=== PATIENT | male | born 1965 | race Caucasian/White ===

== ENCOUNTER 2016-10-17 23:50 | Emergency (ER) | payer MEDICARE, OTHER ==
[~2016-10-17] VITALS: Ht 177.8 cm; Wt 131.5 kg
--- OUTSIDE RECORDS SUMMARY | ~2016-10-17 | XMS ---
Demographics + + + | Address | [address] | | | [place] [address] | + + + | Preferred Language | Unknown | + + + | Marital Status | Unknown | + + + | Yarsanism Affiliation | Unknown | + + + | Race | Unknown | + + + | Ethnic Group | Unknown | + + + Author + + + | Author | [facility] | + + + | Organization | [facility] | + + + | Address | [address] | | | [place] [address] | + + + | Phone | | + + + Care Team Providers + + + + | Care Welder Boilermaker Name | Role | Phone | + + + + Unavailable | Unavailable | + + + + PROBLEMS + + + + + + + + | Type | Condition | ICD9-CM | [id number] | Onset | Condition | SNOMED | | | | Code | Code | Dates | Status | Code | + + + + + + + + | Problem | Parkinson' | 332.0 | | | Active | 09138842 | | | s disease | | | | | | | | NOS | | | | | | + + + + + + + + | Problem | Crohn's | 555.1 | | | Active | 23374393 | | | disease of | | | | | | | | colon | | | | | | + + + + + + + + | Problem | Abdominal | 789.07 | | | Active | 907514991 | | | pain, | | | | | | | | generalize | | | | | | | | d | | | | | | + + + + + + + + | Assessment | Plantar | M72.2 | | Jul, | Active | [id number] | | | fasciitis | | | 2016 | | | + + + + + + + + | Problem | Essential | | I10 | | Active | 68850623 | | | (primary) | | | | | | | | hypertensi | | | | | | | | on | | | | | | + + + + + + + + | Problem | Hyperlipid | | E78.5 | | Active | 74088446 | | | emia | | | | | | + + + + + + + + | Problem | B12 | 266.2 | | | Active | 384709269 | | | vitamin | | | | | | | | deficiency | | | | | | + + + + + + + + | Problem | Depression | 296.00 | | | Active | 698918562 | | | , major | | | | | | | | NOS | | | | | | + + + + + + + + | Problem | POSTSURGIC | V45.89 | | | Active | 42585473 | | | AL STATES | | | | | | | | NEC | | | | | | + + + + + + + + | Problem | Ventral | 553.20 | | | Active | 074823531 | | | hernia NOS | | | | | | | | without | | | | | | | | mention of | | | | | | | | | | | | | | | | obstructio | | | | | | | | n or | | | | | | | | gangrene | | | | | | + + + + + + + + ALLERGIES + + + + +--------+ | Substance | Reaction | Event Type | Date | Status | + + + + +--------+ | allergic to one | Unknown | Non Drug | Jul, | Active | | antibiotic at | | Allergy | | | | dentist (went | | | | | | to ED | | | | | + + + + +--------+ SOCIAL HISTORY No smoking Hx information available PLAN OF CARE VITAL SIGNS + + + + | Height | 70 in | 2016-07-28 | + + + + | Weight | 268 lbs | 2016-07-28 | + + + + | BMI | 38.45 kg/m2 | 2016-07-28 | + + + + | Temperature | 98.0 degrees Fahrenheit | 2016-07-28 | + + + + | Heart Rate | 81 /min | 2016-07-28 | + + + + | Blood pressure systolic | 111 mm Hg | 2016-07-28 | + + + + | Blood pressure diastolic | 79 mm Hg | 2016-07-28 | + + + + MEDICATIONS + + + + + + + +--------+ | Medicati | Instruct | Dosage | Frequenc | Start | End Date | Duration | Status | | on | ions | | y | Date | | | | + + + + + + + +--------+ | Omeprazo | | TAKE ONE | | | | 30 | Active | | le 20 | | CAPSULE | | | | | | | | | BY | | | | | | | | | MOUTH | | | | | | | | | EVERY | | | | | | | | | DAY | | | | | | + + + + + + + +--------+ | Sulfasal | | TAKE 2 | | | | 30 | Active | | azine | | TABLETS | | | | | | | 500 | | BY MOUTH | | | | | | | | | EVERY 6 | | | | | | | | | HOURS | | | | | | + + + + + + + +--------+ | Ondanset | Orally | 1 tablet | | 24 Jm, | | 30 | Active | | awilda 4 mg | -subling | | | 2013 | | | | | | ual qid | | | | | | | | | for | | | | | | | | | Nausea | | | | | | | + + + + + + + +--------+ | Proprano | | TAKE 1 | | | | 30 | Active | | lol HCl | | CAPSULE | | | | | | | ER 60 | | BY MOUTH | | | | | | | | | EVERY | | | | | | | | | DAY | | | | | | + + + + + + + +--------+ | vitamin | intramus | 1 mL | | 26 Jm, | | | Active | | B-12 | cularly | | | 2013 | | | | | 1000mcg | NOW | | | | | | | + + + + + + + +--------+ | Carbidop | | TAKE 1 | | | | 30 | Active | | a-Levodo | | TABLET | | | | | | | pa 0 | | BY MOUTH | | | | | | | | | 3 TIMES | | | | | | | | | DAILY | | | | | | + + + + + + + +--------+ | Primidon | | 1 tablet | | | | | Active | | e 50 MG | | | | | | | | + + + + + + + +--------+ | Ibuprofe | Orally | 1 tablet | 8h | 28 Jul, | 8 July, | 10 | Active | | n 800 MG | Three | | | 2017 | 2017 | day(s) | | | | times a | | | | | | | | | day | | | | | | | + + + + + + + +--------+ | Prilosec | Orally q | 1 ta b | | | | 30 | Active | | 20 | day | | | | | | | + + + + + + + +--------+ RESULTS + +--------+------+ + | Name | Result | Date | Reference Range | + +--------+------+ + | Glucose, Finger | | | | | Stick (IH) | | | | + +--------+------+ + PROCEDURES + + + + + | Procedure | Date Ordered | Related Diagnosis | Body Site | + + + + + | Office Visit, Est | July 28, 2016 | | | | Pt., Level 3 | | | | + + + + + | REAGENT STRIP/BLOOD | July 28, 2016 | | | | GLUCOSE | | | | + + + + + IMMUNIZATIONS No Known Immunizations"
--- OUTSIDE RECORDS SUMMARY | ~2016-10-17 | XMS ---
Demographics + + + | Address | [address] | | | [place] [address] | + + + | Preferred Language | Unknown | + + + | Marital Status | Unknown | + + + | Sabianist Affiliation | Unknown | + + + | Race | Unknown | + + + | Ethnic Group | Unknown | + + + Author + + + | Author | [facility] | + + + | Organization | [facility] | + + + | Address | [address] | | | [place] [address] | + + + | Phone | | + + + Care Team Providers + + + + | Care Railroad Auditor Name | Role | Phone | + + + + Unavailable | Unavailable | + + + + PROBLEMS +---------+ + + +--------+ + + | Type | Condition | ICD9-CM | [id number] | Onset | Condition | SNOMED | | | | Code | Code | Dates | Status | Code | +---------+ + + +--------+ + + | Problem | Parkinson' | 332.0 | | | Active | [id number] | | | s disease | | | | | | | | NOS | | | | | | +---------+ + + +--------+ + + | Problem | Crohn's | 555.1 | | | Active | 26671522 | | | disease of | | | | | | | | colon | | | | | | +---------+ + + +--------+ + + | Problem | Abdominal | 789.07 | | | Active | 571520768 | | | pain, | | | | | | | | generalize | | | | | | | | d | | | | | | +---------+ + + +--------+ + + | Problem | Essential | | I10 | | Active | 58602796 | | | (primary) | | | | | | | | hypertensi | | | | | | | | on | | | | | | +---------+ + + +--------+ + + | Problem | Hyperlipid | | E78.5 | | Active | 01930965 | | | emia | | | | | | +---------+ + + +--------+ + + | Problem | B12 | 266.2 | | | Active | 163748885 | | | vitamin | | | | | | | | deficiency | | | | | | +---------+ + + +--------+ + + | Problem | Depression | 296.00 | | | Active | 546881661 | | | , major | | | | | | | | NOS | | | | | | +---------+ + + +--------+ + + | Problem | POSTSURGIC | V45.89 | | | Active | 95009123 | | | AL STATES | | | | | | | | NEC | | | | | | +---------+ + + +--------+ + + | Problem | Ventral | 553.20 | | | Active | [id number] | | | hernia NOS | | [...] gangrene | | | | | | +---------+ + + +--------+ + + ALLERGIES + + + + +--------+ | Substance | Reaction | Event Type | Date | Status | + + + + +--------+ | allergic to one | Unknown | Non Drug | July, | Active | | antibiotic at | | Allergy | | | | dentist (went | | | | | | to ED | | | | | + + + + +--------+ SOCIAL HISTORY No smoking Hx information available PLAN OF CARE + +---------+ | Activity | Details | + +---------+ +---+ | | +---+ + + + | Follow Up | 4 Weeks Reason:null | + + + | Pending Test | TSH | + + + | Pending Test | Sedimentation Rate-Westergren | + + + | Pending Test | CBC | + + + VITAL SIGNS + + + + | Height | 70 in | 2016-08-23 | + + + + | Weight | 283.0 lbs | 2016-08-23 | + + + + | BMI | 40.60 kg/m2 | 2016-08-23 | + + + + | Heart Rate | 83 /min | 2016-08-23 | + + + + | Blood pressure systolic | 143 mm Hg | 2016-08-23 | + + + + | Blood pressure diastolic | 64 mm Hg | 2016-08-23 | + + + + MEDICATIONS + [...] | intramus | 1 mL | | Sep, | | | Active | | B-12 | cularly | | | 2012 | | | | | 1000mcg | NOW | | | | | | | + + + + + + + +--------+ | Ondanset | Orally | 1 tablet | | 24 Sep, | | 30 | Active | | [...] Orally | 1 tablet | 8h | | | 10 | Active | | n 800 MG | Three | | | | | | | | | times a | [...] + + + + + +--------+ | Motrin | Orally | 1 tablet | | 24 July, | | 30 | Active | | IB 800 | every 8 | as | | 2017 | | | | | MG | hr prn | needed | | | | | | + [...] Reference Range | + +--------+------+ + | Comp. Metabolic | | | | | Panel (14) | | | | + +--------+------+ + | Calcium, Serum | | | | + +--------+------+ + | Glucose, Serum | | | | + +--------+------+ + | BUN | | | | + +--------+------+ + | Protein, Total, | | | | | Serum | | | | + +--------+------+ + | Albumin, Serum | | | | + +--------+------+ + | Bilirubin, Total | | | | + +--------+------+ + | Alkaline | | | | | Phosphatase, S | | | | + +--------+------+ + | AST (SGOT) | | | | + +--------+------+ + | Potassium, Serum | | | | + +--------+------+ + | Sodium, Serum | | | | + +--------+------+ + | Chloride, Serum | | | | + +--------+------+ + | Creatinine, Serum | | | | + +--------+------+ + | ALT (SGPT) | | | | + +--------+------+ + | Carbon Dioxide, | | | | | Total | | | | + +--------+------+ + | BUN/Creatinine | | | | | Ratio | | | | + +--------+------+ + | Globulin, Total | | | | + +--------+------+ + | A/G Ratio | | | | + +--------+------+ + PROCEDURES + + + + + | Procedure | Date Ordered | Related Diagnosis | Body Site | + + + + + | INJ VIT B-12 | August 23, 2016 | | | | CYNOCOBLMN TO 1000 | | | | | MCG | | | | + + + + + | INJECTION | August 23, 2016 | | | | ADMINISTRATION | | | | + + + + + | Office Visit, Est | August 23, 2016 | | | | Pt., Level 3 | | | | + + + + + IMMUNIZATIONS + + + + + | Vaccine | Route | Administration Date | Status | + + + + + | Cyanocobalamin | IM Intramuscular | August 23, 2016 | Administered | + + + + +"
[~2016-10-17 23:50] MED LIST: ABILIFY10 MG PO; ABILIFY5 MG; ALBUTEROL2.5 MG/3 M INH; ASACOL400 MG PO; AZITHROMYCIN IV; CARBIDOPA-LEVO1 EAC1 PO; CEPHALEXIN500 MG PO; LAMOTRIGINE25 MG PO; LEVAQUIN750 MG PO; OMEPRAZOLE20 MG PO; ONDANSETRON ODT4 MG PO; PRILOSEC20 MG; PRIMIDONE50 MG PO; PROPRANOLOL HCL60 MG PO; PROZAC40 MG PO; SEPTRA DS TABL1 EACH PO; SULFASALAZINE500 MG PO; SULFAZINE500 MG; SULFAZINE500 MG PO; TEGRETOL XR100 MG; TRAMADOL HCL50 MG PO; TYLENOL PM EX-1 EACH; VICODIN 5-3001 EACH PO; ZOFRAN ODT4 MG SL
[2016-10-18] MEDS ORDERED: OXYCODONE HCL5 MG PO (00:19)
[2016-10-18] MEDS ORDERED: ONDANSETRON ODT4 MG PO (00:24)
== END 2016-10-18 03:13 | disposition home or self-care (01) ==
LOC: ED 23:50
DX: G89.18 Other acute postprocedural pain (principal); Z86.73 Personal history of transient ischemic attack (TIA), and cerebral infarction without residual deficits; Z87.442 Personal history of urinary calculi; Z88.1 Allergy status to other antibiotic agents; Z86.14 Personal history of Methicillin resistant Staphylococcus aureus infection; Z88.8 Allergy status to other drugs, medicaments and biological substances; Z79.899 Other long term (current) drug therapy
CPT/HCPCS: 74177; 80053; 81001; 83690; 85025; 96374; 99284; J2405; Q9967

== ENCOUNTER 2020-04-14 12:28 | Emergency (ER) | payer MEDICARE, OTHER ==
[~2020-04-14] VITALS: Ht 180.3 cm; Wt 144.4 kg
[~2020-04-14 12:28] MED LIST changes: +LIPITOR10 MG PO; +OXYCODONE HCL5 MG PO
[2020-04-14] MEDS ORDERED: GLUCOPHAGE XR500 MG PO (13:00)
[2020-04-14] MEDS ORDERED: PRIMIDONE50 MG PO (13:00)
== END 2020-04-14 16:05 | disposition home or self-care (01) ==
LOC: ED 12:28
DX: F32.9 Major depressive disorder, single episode, unspecified (principal); G20 Parkinson's disease; Z86.73 Personal history of transient ischemic attack (TIA), and cerebral infarction without residual deficits; F17.200 Nicotine dependence, unspecified, uncomplicated; Z88.0 Allergy status to penicillin; Z88.8 Allergy status to other drugs, medicaments and biological substances; Z79.899 Other long term (current) drug therapy; Z79.84 Long term (current) use of oral hypoglycemic drugs
CPT/HCPCS: 80053; 80176; 81001; 84443; 85025; 99283

== ENCOUNTER 2020-04-15 12:48 | Emergency (ER) | payer MEDICARE, OTHER ==
[~2020-04-15] VITALS: Ht 180.3 cm; Wt 158.8 kg
[~2020-04-15 12:48] MED LIST changes: +GLUCOPHAGE XR500 MG PO
--- OUTSIDE RECORDS SUMMARY | 2020-04-15 12:50 | XMS ---
PreManage Notification: DOM SHELL Security Healthcare Account Manager Events No recent Security Events currently on file CRITERIA MET - [facility] - 2 Visits in 30 Days CARE PROVIDERS There are no care providers on record at this time. [place] has no Care Guidelines for this patient. [facility] NOTE: Visits indicate total known visits. ED/C VISIT TRACKING (12 MO.) [facility] COMPLAINT: - MEDICAL CLEARANCE 04/14/2020 12:29 [facility] [place] TYPE: Emergency COMPLAINT: - MEDICAL CLEARANCE INPATIENT VISIT TRACKING (12 MO.) No inpatient visits to display in this time frame [id number]
== END 2020-04-15 13:23 | disposition home or self-care (01) ==
LOC: ED 12:48
DX: F12.90 Cannabis use, unspecified, uncomplicated (principal); Z72.89 Other problems related to lifestyle; G20 Parkinson's disease; Z86.73 Personal history of transient ischemic attack (TIA), and cerebral infarction without residual deficits; F17.200 Nicotine dependence, unspecified, uncomplicated; Z88.0 Allergy status to penicillin; Z88.8 Allergy status to other drugs, medicaments and biological substances; Z79.899 Other long term (current) drug therapy; Z79.84 Long term (current) use of oral hypoglycemic drugs
CPT/HCPCS: 99284

== ENCOUNTER 2020-04-15 17:30 | Emergency (ER) | payer MEDICARE, OTHER ==
[~2020-04-15] VITALS: Ht 180.3 cm; Wt 158.8 kg
--- OUTSIDE RECORDS SUMMARY | 2020-04-15 17:32 | XMS ---
PreManage Notification: DOM HSELL Security Preprint Analyst Events No recent Security Events currently on file CRITERIA MET - [facility] - 2 Visits in 30 Days CARE PROVIDERS There are no care providers on record at this time. [place] has no Care Guidelines for this patient. Sunita V[facility] COUNT (12 MO.) [facility] NOTE: Visits indicate total known visits. ED/C VISIT TRACKING (12 MO.) [facility]2020 17[facility] [place] [facility] COMPLAINT: - MEDICAL CLEARANCE 04/15/2020 12:48 [facility] [place] TYPE: Emergency COMPLAINT: - MEDICAL CLEARANCE 04/14/2020 12:29 [facility] [place] TYPE: Emergency COMPLAINT: - MEDICAL CLEARANCE INPATIENT VISIT TRACKING (12 MO.) No inpatient visits to display in this time frame [email or web address]
== END 2020-04-16 17:45 ==
LOC: ED 17:30
DX: F31.9 Bipolar disorder, unspecified (principal); Z20.822 Contact with and (suspected) exposure to COVID-19; G20 Parkinson's disease; Z86.73 Personal history of transient ischemic attack (TIA), and cerebral infarction without residual deficits; F17.200 Nicotine dependence, unspecified, uncomplicated; Z88.0 Allergy status to penicillin; Z88.1 Allergy status to other antibiotic agents; Z79.899 Other long term (current) drug therapy; Z79.84 Long term (current) use of oral hypoglycemic drugs
CPT/HCPCS: 80053; 80176; 81001; 84443; 85025; 99285; C9803; Q0163; U0003

== ENCOUNTER → 2020-04-28 | Emergency (ER) | payer MEDICARE, OTHER ==
[~2020-04-28] VITALS: Ht 180.3 cm; Wt 158.8 kg
[~2020-04-28] MED LIST changes: +ZYPREXA15 MG PO
--- OUTSIDE RECORDS SUMMARY | 2020-04-28 10:50 | XMS ---
PreManage Notification: DOM SHELL Security Energy Conservation Representative Events No recent Security Events currently on file CRITERIA MET - [facility] - Has Care Guidelines - [facility] - 2 Visits in 30 Days CARE PROVIDERS KULDIP REEDLM Internal Medicine 04/19/2020-Current PHONE: Unknown [place] has no Care Guidelines for this patient. Care History Medical/Surgical 04/19/2020 [facility] - Patient is currently established with [facility]. If patient is seen in the ED during business hours. Please contact CHWs at [facility]. Care Recommendation: If this patient has had 5 or more Emergency Department visits in the last 12 months.\T\nbsp; Patient will require education on the scope and purpose of the ED as an acute care provider not a Primary Care Provider and should not be utilized for chronic conditions.\T\nbsp; These are guidelines and the provider should exercise clinical judgment when providing care. E.D. VISIT COUNT (12 MO.) 4 [facility] TOTAL 4 NOTE: Visits indicate total known visits. ED/UCC VISIT TRACKING (12 MO.) 04/28/2020 10:[address] [facility] [place] TYPE: Emergency COMPLAINT: - MEDICAL CLEARANCE 04/15/2020 17:[address] [facility] [place] TYPE: Emergency COMPLAINT: - MEDICAL CLEARANCE DIAGNOSES: - Parkinson's disease - prison (current) use of oral hypoglycemic drugs - Bipolar disorder, unspecified - Other alf (current) drug therapy - Allergy status to other antibiotic agents - Personal history of transient ischemic attack (TIA), and cerebral infarction without residual deficits - Allergy status to penicillin - Nicotine dependence, unspecified, uncomplicated 04/15/2020 12:48 [facility] [place] TYPE: Emergency COMPLAINT: - MEDICAL CLEARANCE DIAGNOSES: - Cannabis use, unspecified, uncomplicated - Allergy status to other drugs, medicaments and biological substances - 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 - Other alf (current) drug therapy - Nicotine dependence, unspecified, uncomplicated - Other problems related to lifestyle - Personal history of transient ischemic attack (TIA), and cerebral infarction without residual deficits - Allergy status to penicillin - Parkinson's disease 04/14/2020 12:29 [facility] [place] TYPE: Emergency COMPLAINT: - MEDICAL CLEARANCE DIAGNOSES: - Nicotine dependence, unspecified, uncomplicated - Other alf (current) drug therapy - Allergy status to penicillin - Major depressive disorder, single episode, unspecified - Parkinson's disease - Allergy status to other drugs, medicaments and biological substances - Personal history of transient ischemic attack (TIA), and cerebral infarction without residual deficits - 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 INPATIENT VISIT TRACKING (12 MO.) 04/16/2020 21:10 [facility] [place] TYPE: Psychiatric Services DIAGNOSES: 0. Bipolar disorder, unspecified 0. BIPOLAR DISORDER UNSPECIFIED 1. Bipolar disorder, unspecified 1. Bipolar disorder, current episode mixed, severe, without psychotic features 2. Unspecified abdominal hernia without obstruction or gangrene 2. prison (current) use of insulin 2. Obesity, unspecified 2. Essential (primary) hypertension 2. Crohn's disease, unspecified, without complications 2. Type 2 diabetes mellitus without complications 2. Gastro-esophageal reflux disease without esophagitis 2. Personal history of self-harm [id number]
== END ==
LOC: ED 10:48
DX: Z00.00 Encounter for general adult medical examination without abnormal findings (principal); F17.200 Nicotine dependence, unspecified, uncomplicated; Z88.0 Allergy status to penicillin; Z88.8 Allergy status to other drugs, medicaments and biological substances; Z86.73 Personal history of transient ischemic attack (TIA), and cerebral infarction without residual deficits
CPT/HCPCS: 99283

== ENCOUNTER 2020-11-09 12:36 | Emergency (ER) | payer MEDICARE, OTHER ==
[~2020-11-09] VITALS: Ht 180.3 cm; Wt 158.9 kg
--- OUTSIDE RECORDS SUMMARY | 2020-11-09 12:44 | XMS ---
PreManage Notification: DOM SHELL Security Corrections Unit Supervisor Events No recent Security Events currently on file CRITERIA MET - [facility] - Has Care Guidelines CARE PROVIDERS GURVINDER REED Internal Medicine 04/19/2020-Current PHONE: Unknown [place] has no Care Guidelines for this patient. Care History Medical/Surgical 04/19/2020 [facility] - Patient is currently established with [facility]. If patient is seen in the ED during business hours. Please contact CHWs at [facility]. Care Recommendation: If this patient has had [...] providing care. E.D. VISIT COUNT (12 MO.) 6 [facility] TOTAL 6 NOTE: Visits indicate total known visits. ED/UCC VISIT TRACKING (12 MO.) 11/09/2020 12:[address] [facility] [place] TYPE: Emergency COMPLAINT: - R FLANK PAIN 04/29/2020 10:32 [facility] [place] TYPE: Emergency COMPLAINT: - MEDICAL CLEARANCE DIAGNOSES: - Allergy status to penicillin - USP (current) use of oral hypoglycemic drugs - Other assisted (current) drug therapy - Allergy status to other drugs, medicaments and biological substances - Personal history of transient ischemic attack (TIA), and cerebral infarction without residual deficits - Unspecified psychosis not due to a substance or known physiological condition - Nicotine dependence, unspecified, uncomplicated 04/28/2020 10:[address] [facility] [facility] [place] TYPE: Emergency COMPLAINT: - MEDICAL CLEARANCE DIAGNOSES: - Nicotine dependence, unspecified, uncomplicated - Encounter for general adult medical examination without abnormal findings - Allergy status to penicillin - Personal history of transient ischemic attack (TIA), and cerebral infarction without residual deficits - Allergy status to other drugs, medicaments and biological substances 04/15/2020 17:30 [facility] [place] TYPE: Emergency COMPLAINT: - MEDICAL CLEARANCE DIAGNOSES: - Parkinson's disease - long term (current) use of oral hypoglycemic drugs - Bipolar disorder, unspecified - Other intermediate school teacher (current) drug therapy - Cannabis use, unspecified, uncomplicated - Allergy status to other antibiotic agents - Personal history of transient ischemic attack (TIA), and cerebral infarction without residual deficits - Allergy status to penicillin - Other problems related to lifestyle - Nicotine dependence, unspecified, uncomplicated 04/15/2020 12:48 [facility] [place] TYPE: Emergency COMPLAINT: - MEDICAL CLEARANCE DIAGNOSES: - Cannabis use, unspecified, uncomplicated - Allergy status to other drugs, medicaments and biological substances - long term (current) use of oral hypoglycemic drugs - Other intermediate school teacher (current) drug therapy - Nicotine dependence, unspecified, uncomplicated - Other problems related to lifestyle - Personal history of transient ischemic attack (TIA), and cerebral infarction without residual deficits - Allergy status to penicillin - Parkinson's disease 04/14/2020 12:29 [facility] [place] TYPE: Emergency COMPLAINT: - MEDICAL CLEARANCE DIAGNOSES: - Nicotine dependence, unspecified, uncomplicated - Other intermediate school teacher (current) drug therapy - Allergy status to penicillin - Major depressive disorder, single episode, unspecified - Parkinson's disease - Allergy status to other drugs, medicaments and biological substances - Personal history of transient ischemic attack (TIA), and cerebral infarction without residual deficits - long term (current) use of oral hypoglycemic drugs INPATIENT VISIT TRACKING (12 MO.) 04/16/2020 21:10 [facility] [place] TYPE: Psychiatric Services DIAGNOSES: 0. Bipolar disorder, unspecified 0. BIPOLAR DISORDER UNSPECIFIED 1. Bipolar disorder, unspecified 1. Bipolar disorder, current episode mixed, severe, without psychotic features 2. Unspecified abdominal hernia without obstruction or gangrene 2. USP (current) use of insulin 2. Obesity, unspecified 2. Essential (primary) hypertension 2. Crohn's disease, unspecified, without complications 2. Type 2 diabetes mellitus without complications 2. Gastro-esophageal reflux disease without esophagitis 2. Personal history of self-harm [id number]
[2020-11-09] MEDS ORDERED: ABILIFY10 MG PO (12:54)
== END 2020-11-09 13:18 | disposition home or self-care (01) ==
LOC: ED 12:36
DX: R10.9 Unspecified abdominal pain (principal); G20 Parkinson's disease; Z87.891 Personal history of nicotine dependence; Z88.0 Allergy status to penicillin; Z88.8 Allergy status to other drugs, medicaments and biological substances; Z79.899 Other long term (current) drug therapy; Z79.84 Long term (current) use of oral hypoglycemic drugs
CPT/HCPCS: 99283

== ENCOUNTER 2022-09-12 21:55 | Emergency (ER) | payer MEDICARE, OTHER ==
[~2022-09-12] VITALS: Ht 180.3 cm; Wt 128.0 kg
[2022-09-12] MEDS ORDERED: ARIPIPRAZOLE15 MG PO (22:18)
[2022-09-12] MEDS ORDERED: PRIMIDONE50 MG PO (22:19)
[2022-09-12] MEDS ORDERED: TRAZODONE HCL100 MG PO (22:19)
[2022-09-12] MEDS ORDERED: OMEPRAZOLE40 MG PO (22:19)
[2022-09-12] MEDS ORDERED: PRAZOSIN HCL2 MG PO (22:19)
[2022-09-12] MEDS ORDERED: SERTRALINE HCL100 MG PO (22:19)
[2022-09-12 23:03] VITALS: BP 139/94
== END 2022-09-12 23:06 | disposition home or self-care (01) ==
LOC: ED 21:55
DX: T74.11XA Adult physical abuse, confirmed, initial encounter (principal); G20 Parkinson's disease; Z86.73 Personal history of transient ischemic attack (TIA), and cerebral infarction without residual deficits; Z87.891 Personal history of nicotine dependence; Z88.0 Allergy status to penicillin; Z88.8 Allergy status to other drugs, medicaments and biological substances; Z79.899 Other long term (current) drug therapy; Z79.84 Long term (current) use of oral hypoglycemic drugs
CPT/HCPCS: 99283

== ENCOUNTER 2023-10-03 15:59 | Emergency (ER) | payer MEDICARE, OTHER ==
[~2023-10-03] VITALS: Ht 180.3 cm; Wt 141.2 kg
[~2023-10-03 15:59] MED LIST changes: +ARIPIPRAZOLE15 MG PO; +METFORMIN HCL500 MG PO; +OMEPRAZOLE40 MG PO; +PRAZOSIN HCL2 MG PO; +SEROQUEL100 MG PO; +SERTRALINE HCL100 MG PO; +TRAZODONE HCL100 MG PO; +TRAZODONE HCL150 MG PO
[2023-10-03] MEDS ORDERED: TOPIRAMATE100 MG PO (16:12)
[2023-10-03] MEDS ORDERED: VITAMIN D21250 MCG PO (16:12)
[2023-10-03] MEDS ORDERED: LORAZEPAM1 MG PO (16:12)
[2023-10-03 16:29] LABS: BASOPHILS 0.8 % (0-2); EOSINOPHILS 1.2 % (0-6); HEMATOCRIT 37.7 % (35.0-50.0); HEMOGLOBIN 12.4 g/dL (12.0-18.0); LYMPHOCYTES 19.6 % (24-44); MCHC 32.8 g/dl (30-36); MCV 94.5 fl (81-99); MONOCYTES 10.6 % (0-12); NEUTROPHILS 67.8 % (39-80); PLATELET COUNT 195 K/uL (140-440); RBC 3.99 M/ul (4.3-5.7); RDW 15.4 (10.5-15.0)
[2023-10-03 16:52] LABS: ALBUMIN 3.2 g/dL (3.4-5.0); ALBUMIN/GLOBULIN RATIO 0.82 (1.1-2.4); ALKALINE PHOSPHATASE 102 U/L (46-116); ALT (SGPT) 24 U/L (14-59); ANION GAP 12.5 (7-21); AST (SGOT) 29 U/L (15-37); BILIRUBIN, TOTAL 0.2 ng/dL (0.2-1.0); BUN/CREATININE RATIO 12.12 (6.0-28.6); CALCIUM 8.2 mg/dL (8.5-10.1); CARBON DIOXIDE 26 mmol/L (21-32); CHLORIDE 106 mmol/L (98-107); CREATININE, SERUM 0.99 mg/dL (0.70-1.30); GLOMERULAR FILTRATION RATE,EST 87 mL/min (>60); MAGNESIUM 1.8 mg/dL (1.8-2.4); POTASSIUM 3.5 mmol/L (3.5-5.1); PROTEIN, TOTAL 7.1 g/dL (6.4-8.2); UREA NITROGEN 12 mg/dL (7-18)
[2023-10-03 17:43] VITALS: BP 120/78
--- NOTE | 2023-10-05 07:30 | EKG ---
[facility] [address] [facility] [place], [place] [address] Signed Sinus tachycardia Low voltage QRS Borderline ECG When compared with ECG of 07-JAN-2018 08:37, No significant change was found Confirmed by Paco Cabrera MD ([id number]) on 10/05/2023 7:30:19 AM Electronically Signed By: PACO CABRERA 10/05/23 0730 PATIENT NAME: DOM SHELL Electrocardiogram DATE OF : 61 PHYSICIAN: PACO CABRERA REPORT #: [id number] REPORT IS CONFIDENTIAL AND NOT TO BE RELEASED WITHOUT AUTHORIZATION
== END 2023-10-03 17:45 | disposition home or self-care (01) ==
LOC: ED 15:59
PROVIDERS: Emergency Medicine
DX: R06.02 Shortness of breath (principal); R53.81 Other malaise; Z86.73 Personal history of transient ischemic attack (TIA), and cerebral infarction without residual deficits; Z79.899 Other long term (current) drug therapy; Z79.84 Long term (current) use of oral hypoglycemic drugs; Z88.0 Allergy status to penicillin; Z88.1 Allergy status to other antibiotic agents; Z87.891 Personal history of nicotine dependence
CPT/HCPCS: 36415; 71045; 80053; 83735; 83880; 84484; 85025; 93005; 93010; 99285-25

== ENCOUNTER 2024-12-04 12:13 | Emergency (ER) | payer MEDICARE, OTHER ==
[~2024-12-04] VITALS: Ht 180.3 cm; Wt 127.0 kg
[~2024-12-04 12:13] MED LIST changes: +LORAZEPAM1 MG PO; +TOPIRAMATE100 MG PO; +VITAMIN D21250 MCG PO
[2024-12-04] MEDS ORDERED: OXYCODONE HCL5 MG (12:37)
[2024-12-04] MEDS ORDERED: AMOX TR-K CLV1 EAC1 (12:37)
[2024-12-04 13:36] LABS: BASOPHILS 0.6 % (0.2-1.2); EOSINOPHILS 1.8 % (0.8-7.0); LYMPHOCYTES 17.6 % (21.8-53.1); MCH 31.4 PG (25.7-32.2); MCHC 29.9 g/dL (32.3-36.5); MCV 104.8 fL (79.0-92.2); MONOCYTES 11.8 % (5.3-12.2); NEUTROPHILS 66.4 % (34.0-67.9); RBC 2.71 M/uL (4.63-6.08)
[2024-12-04 13:49] LABS: ALT (SGPT) 63.0 U/L (14-59); AST (SGOT) 35.0 U/L (15-37); GLOMERULAR FILTRATION RATE,EST 108.0 mL/min (>60); PROTEIN, TOTAL 6.2 g/dL (6.4-8.2); UREA NITROGEN 8.0 mg/dL (7-18)
[2024-12-04 14:44] LABS: BLOOD/HGB, URINE NEGATIVE (Negative); KETONE, URINE NEGATIVE (Negative); LEUK ESTERASE, URINE NEGATIVE (negative); NITRITE, URINE NEGATIVE (negative)
[2024-12-04 17:15] VITALS: BP 114/63
== END 2024-12-04 17:44 | disposition home or self-care (01) ==
LOC: ED 12:13
PROVIDERS: Emergency Medicine
DX: R53.1 Weakness (principal); D64.9 Anemia, unspecified; K50.90 Crohn's disease, unspecified, without complications; G20.A1 Parkinson's disease without dyskinesia, without mention of fluctuations; Z98.890 Other specified postprocedural states; Z86.73 Personal history of transient ischemic attack (TIA), and cerebral infarction without residual deficits; Z87.891 Personal history of nicotine dependence; Z88.1 Allergy status to other antibiotic agents; Z88.0 Allergy status to penicillin; Z79.84 Long term (current) use of oral hypoglycemic drugs; Z79.899 Other long term (current) drug therapy
CPT/HCPCS: 36415; 71045; 80053; 81003; 83690; 85025; 97161; 99285-25

== ENCOUNTER 2024-12-10 13:43 | Emergency (ER) | payer MEDICARE, OTHER ==
[~2024-12-10] VITALS: Ht 180.3 cm; Wt 127.0 kg
[~2024-12-10 13:43] MED LIST changes: +AMOX TR-K CLV1 EAC1; +OXYCODONE HCL5 MG
[2024-12-10 15:07] LABS: BASOPHILS 0.8 % (0.2-1.2); EOSINOPHILS 2.5 % (0.8-7.0); LYMPHOCYTES 26.2 % (21.8-53.1); MCH 29.7 PG (25.7-32.2); MCHC 29.3 g/dL (32.3-36.5); MCV 101.4 fL (79.0-92.2); MONOCYTES 15.4 % (5.3-12.2); NEUTROPHILS 54.8 % (34.0-67.9); RBC 2.90 M/uL (4.63-6.08)
[2024-12-10 15:22] LABS: ALT (SGPT) 27.0 U/L (14-59); AST (SGOT) 15.0 U/L (15-37); GLOMERULAR FILTRATION RATE,EST 104.0 mL/min (>60); PROTEIN, TOTAL 6.5 g/dL (6.4-8.2); UREA NITROGEN 7.0 mg/dL (7-18)
[2024-12-10] MEDS ORDERED: MORPHINE SULFATE 4 MG/ML VIAL IV ONE (17:15)
[2024-12-10 18:29] VITALS: BP 99/62
== END 2024-12-10 18:20 | disposition home or self-care (01) ==
LOC: ED 13:43
PROVIDERS: Emergency Medicine
DX: T85.628A Displacement of other specified internal prosthetic devices, implants and grafts, initial encounter (principal); Z88.1 Allergy status to other antibiotic agents; Z79.899 Other long term (current) drug therapy
CPT/HCPCS: 36415; 74177; 80053; 85025; 96374; 96375; 99284-25; A6590; J2270; J2405; Q9967